=== PATIENT | female | born 2000 | race Caucasian/White ===

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

== ENCOUNTER 2019-01-27 18:23 | Emergency (ER) | payer OTHER ==
[~2019-01-27] VITALS: Ht 162.6 cm; Wt 59.9 kg
[2019-01-27 18:45] VITALS: BP 117/80
--- NOTE | 2019-01-27 18:45 | NUR ---
ED Nurse Note: pt walked in to ED with partner from home due to dropping temp. per pt, initial temp was 96.6 and dropped to 93 within 30 mins. denies drinking any cold beverage. also c/o headache. per pt, "mom told me to go to hospital for hypothyroid." AAO x4. respirations even and non-labored noted. skin warm to touch. will wait for the further order.
[2019-01-27] MEDS ORDERED: Ketorolac 30mg Inj IV ONE (19:00)
--- NOTE | 2019-01-27 19:08 | NUR ---
HAND-OFF: Report given to FREDO Elaine. pending meds.
[2019-01-27 19:32] LABS: APPEARANCE,URINE CLEAR; BILIRUBIN, URINE NEGATIVE (NEGATIVE); COLOR,URINE YELLOW; GLUCOSE, URINE (UA) NEGATIVE (NEGATIVE); KETONES,URINE NEGATIVE (NEGATIVE); LEUKOCYTE ESTERASE ,URINE NEGATIVE (NEGATIVE); NITRITE,URINE NEGATIVE (NEGATIVE); PH,URINE 7 (4.5-8.0); PROTEIN,URINE NEGATIVE (NEGATIVE); UROBILINOGEN,URINE NORMAL MG/DL (0.0-1.0)
[2019-01-27 19:36] LABS: ANION GAP 7 mmol/L (5-15); BLOOD UREA NITROGEN 14 mg/dL (7-18); CALCIUM 9.1 MG/DL (8.5-10.1); CARBON DIOXIDE 29 MMOL/L (21-32); CHLORIDE 106 MMOL/L (98-107); CREATININE 0.8 MG/DL (0.55-1.30); POTASSIUM 4.3 MMOL/L (3.5-5.1); SODIUM 142 MMOL/L (136-145)
[2019-01-27 19:41] LABS: ALANINE AMINOTRANSFERASE 23 U/L (12-78); ALBUMIN 3.7 G/DL (3.4-5.0); ALBUMIN/GLOBULIN RATIO 1.1 (1.0-2.7); ALKALINE PHOSPHATASE 97 U/L (46-116); ASPARTATE AMINO TRANSFERASE 15 U/L (15-37); BILIRUBIN,TOTAL 0.9 MG/DL (0.2-1.0)
[2019-01-27 19:46] LABS: BASOPHILS % (AUTO) 1.4 % (0.0-2.0); EOSINOPHILS % (AUTO) 5.2 % (0.0-3.0); HEMATOCRIT 39.2 % (37.0-47.0); HEMOGLOBIN 13.7 G/DL (12.0-16.0); LYMPHOCYTES % (AUTO) 23.9 % (20.0-45.0); MEAN CORPUSCULAR VOLUME 86 FL (80-99); MONOCYTES % (AUTO) 6.7 % (1.0-10.0); NEUTROPHILS % (AUTO) 62.8 % (45.0-75.0); PLATELET COUNT 263 K/UL (150-450); RED BLOOD COUNT 4.54 M/UL (4.20-5.40); RED CELL DISTRIBUTION WIDTH 9.8 % (11.6-14.8); WHITE BLOOD COUNT 9.8 K/UL (4.8-10.8)
--- NOTE | 2019-01-27 19:52 | Emergency Room Report ---
History of Present Illness General Chief Complaint: Headache Source: Patient Present Illness HPI 18-year-old female with no significant past medical history here complaining of 4 days of bilateral headache radiating posteriorly to the neck region and shoulders. Patient is assuming this is a migraine headache as she reports sensitivity to sound however denies photophobia, aura , nausea and vomiting at this time but did have nausea a few days ago. Denies abdominal pain, diarrhea and constipation, fever and chills. No signs of neck stiffness is noted. Reports that few weeks ago she has sinus problems which has resolved now and denies any new onset of URI symptoms. Denies chest pain, shortness of breath, palpitation, and other associated symptoms. Denies urinary symptoms. Reports that she checked her temperature at home and it was 93 F. Denies any drug use and tobacco smoke. Temperature and all other vital signs are within normal limits today. Last menstrual period was 4 days ago and regular Allergies: Uncoded Allergies: PERTUSSIS VACCINE (Allergy, Unknown, 06/02/18) SHELLFISH (Allergy, Unknown, 02/28/18) Patient History Past Medical History: see triage record Past Surgical History: unable to obtain Pertinent Family History: none Last Menstrual Period: 4 days ago Now: No Immunizations: UTD Reviewed Nursing Documentation: PMH: Agreed; PSxH: Agreed Nursing Documentation-PMH Past Medical History: No History, Except For Hx Asthma: Yes Review of Systems All Other Systems: negative except mentioned in HPI Physical Exam Vital Signs Date Time Temp Pulse Resp B/P (MAP) Pulse Ox O2 Delivery O2 Flow Rate FiO2 01/27/19 18:31 98.8 100 18 117/80 (92) 95 Room Air Sp02 EP Interpretation: reviewed, normal General Appearance: no apparent distress, alert, GCS 15, non-toxic Head: normocephalic, atraumatic Eyes: bilateral eye normal inspection, bilateral eye PERRL ENT: hearing grossly normal, normal pharynx, no angioedema, normal voice Neck: full range of motion, supple, thyroid normal, no meningismus, no bony tend, supple/symm/no masses Respiratory: chest non-tender, lungs clear, normal breath sounds, no rhonchi, no wheezing, speaking full sentences Cardiovascular #1: regular rate, rhythm, no edema, no murmur Cardiovascular #2: 2+ radial (R), 2+ radial (L) Gastrointestinal: normal bowel sounds, non tender, soft, non-distended, no guarding, no rebound Genitourinary: no CVA tenderness Musculoskeletal: back normal, gait/station normal, normal range of motion, non- tender Neurologic: alert, oriented x3, responsive, motor strength/tone normal, sensory intact, speech normal Psychiatric: judgement/insight normal, memory normal, mood/affect normal, no suicidal/homicidal ideation Skin: no rash Lymphatic: no adenopathy Medical Decision Making PA Attestation All diagnoses and treatment plans were reviewed and discussed with my supervising physician Dr. Franco Diagnostic Impression: Primary Impression: Tension headache ER Course 18-year-old female with no significant past medical history here complaining of 4 days of bilateral headache radiating posteriorly to the neck region and shoulders. Patient is assuming this is a migraine headache as she reports sensitivity to sound however denies photophobia, aura , nausea and vomiting at this time but did have nausea a few days ago. Denies abdominal pain, diarrhea and constipation, fever and chills. No signs of neck stiffness is noted. Reports that few weeks ago she has sinus problems which has resolved now and denies any new onset of URI symptoms. Denies chest pain, shortness of breath, palpitation, and other associated symptoms. Denies urinary symptoms. Reports that she checked her temperature at home and it was 93 F. Denies any drug use and tobacco smoke. Temperature and all other vital signs are within normal limits today. Last menstrual period was 4 days ago and regular Ddx considered but are not limited to: Migraine headache with aura, migraine headache without aura, tension headache, cluster headache, TBI, subarachnoid hemorrhage Vital signs: are WNL, pt. is afebrile H&PE are most consistent with: Tension headache ORDERS: CBC, CP, UA, tox screen, urine test, Zofran, Excedrin, Motrin ER intervention: NS bolus, Zofran, Toradol DISCHARGE: At this time pt. is stable for d/c to home. Will provide printed patient care instructions, and any necessary prescriptions. Care plan and follow up instructions have been discussed with the patient prior to discharge. Follow with your primary care provider for referral to neurologist if needed for proper assessment and diagnosis of your type of headaches that you are experiencing. If worsening symptoms return to the emergency room. EKG Diagnostic Results Rate: normal Rhythm: NSR ST Segments: no acute changes Other Impression No acute ST changes Chest X-Ray Diagnostic Results Chest X-Ray Diagnostic Results : Chest X-Ray Ordered: Yes # of Views/Limited/Complete: 1 View Indication: Other EP Interpretation: Yes MEHUL Xray: Interpretation reviewed, by supervising MD, and agrees with findings. Interpretation: no consolidation, no effusion, no pneumothorax Impression: No acute disease Electronically Signed by: Ze Armenta PA-C Last Vital Signs Date Time Temp Pulse Resp B/P (MAP) Pulse Ox O2 Delivery O2 Flow Rate FiO2 01/27/19 18:45 98.8 100 18 117/80 95 Room Air Disposition: HOME, SELF-CARE Condition: Stable Scripts Ondansetron (Zofran) 4 Mg Tablet 4 MG ORAL Q6H PRN for Nausea & Vomiting, #10 TAB Prov: Ze Mccarty 01/27/19 Ibuprofen* (MOTRIN*) 600 Mg Tablet 600 MG ORAL Q8H PRN for For Pain, #30 TAB 0 Refills Prov: Ze Mccarty 01/27/19 Aspirin/Acetaminophen/Caffeine (EXCEDRIN MIGRAINE CAPLET) 1 Each Tablet 1 EACH PO BID, #12 TAB Prov: Ze Mccarty 01/27/19 Patient Instructions: Tension Headache Additional Instructions: Take medication as directed, avoid spicy and acidic food. Follow-up with your primary care provider in order to have the correct diagnosis of headache. Neurology referral may be needed. Avoid stress. If worsening symptoms return to the emergency room. Ze Mccarty Jan 27, 2019 19:52
[2019-01-27] MEDS ORDERED: ZOFRAN4 M1 ORAL (19:55)
[2019-01-27] MEDS ORDERED: IBUPROFEN600 MG ORAL (19:55)
[2019-01-27] MEDS ORDERED: EXCEDRIN MIGRA1 EAC1 PO (19:55)
[2019-01-27 20:13] VITALS: BP 117/80
--- NOTE | 2019-01-27 20:13 | NUR ---
ED Nurse Note: Pt cleared by ERMD for discharge. DC instructions/prescription was given and explained to pt and verbalized understanding of teachings. All medical deviecs such as ID band and IV line removed. Pt is AAO x4, ambulatory and left with all personal belongings. Accompanied by a family member.
--- NOTE | 2019-01-28 14:08 | Diagnostic Imaging Report ---
Indication: Dyspnea Comparison: None A single view chest radiograph was obtained. Findings: Cardiomediastinal appearance is within normal limits for age. The lungs are clear. Pulmonary vascularity is appropriate. The diaphragmatic contour is smooth and costophrenic angles are sharp. No pleural effusions are identified. The bones are unremarkable. Impression: No acute findings
== END 2019-01-27 20:13 | disposition home or self-care (01) ==
LOC: EMR 18:57
DX: G44.209 Tension-type headache, unspecified, not intractable (principal); J45.909 Unspecified asthma, uncomplicated; Z91.013 Allergy to seafood; Z88.7 Allergy status to serum and vaccine
CPT/HCPCS: 36415; 71045; 80053; 80307; 81001; 81025; 85025; 93005; 96361; 96374; 96375; J1885; J2405; Z7502; 99285; J7030